=== PATIENT | female | born 2000 | race Caucasian/White ===

== ENCOUNTER 2022-04-25 13:25 | Emergency (ER) | payer OTHER, SELFPAY ==
--- OUTSIDE RECORDS SUMMARY | 2022-04-25 13:33 | XMS REPORT | Continuity of Care Document ---
:2000 Author Organization [facility] t Address [address] [place] [address] Care Team Providers Name Role Phone Pcp, Patient Does Not Have A Primary Care Physician [phone] PARVEZ MILLER Attending Clinician Unavailable JAYMIE GUARDADO Attending Clinician Unavailable De Rocha MD Attending Clinician DE ROCHA Attending Clinician Unavailable Doctor Unassigned, [place] Attending Clinician Unavailable Jaymie Guardado PA-C Attending Clinician RASHEL Attending Clinician Unavailable Kervin Robles Attending Clinician [phone] Nurse, [facility] Attending Clinician Unavailable Renay Martínez MD Attending Clinician Nickolas Nichols MD Attending Clinician Ultrasound, [facility] Attending Clinician Unavailable Carrie Cordoba MD Attending Clinician Marv Wyatt MD Attending Clinician [phone] MARV WYATT Attending Clinician Unavailable ESPERANZA SALMON Attending Clinician Unavailable Shima HAIRSTON, Iris Frias Attending Clinician Esperanza Salmon MD Attending Clinician Magdalene De Dios RN Attending Clinician Unavailable , [facility] Lab Attending Clinician Unavailable HARSHAD PATTERSON Attending Clinician Unavailable TYRA PRESTON Attending Clinician Unavailable DE ROCHA Admitting Clinician Unavailable PARVEZ MILLER Admitting Clinician Unavailable FABIOLA_R Admitting Clinician Unavailable De Rocha MD Admitting Clinician ESPERANZA SALMON Admitting Clinician Unavailable Esperanza Salmon MD Admitting Clinician Payers Payer Name Policy Type Policy Number Effective Date Expiration Date Josh zamorano [facility] [id number] 2021 00:00:00 [facility] [id number] 2017 CHOICE 00:00:00 [facility] [id number] Problems Condition Condition Condition Status Onset Resolution Last Treating Co mments Source Name Details Category Date Date Treatment Clinician Date History of History of Disease Active 2020-07 U nivers anxiety anxiety 1-16 ity of 00:00: [place] [address] Medical Branch History of History of Disease Active 2020-07 U nivers depression depression 1-16 it y of 00:00: [address] Hx of Hx of Disease Active 2020-07 Univers bipolar bipolar -16 ity of disorder disorder 00:00: [address] OAB OAB Disease Active 2020-07 Univers (overactiv (overactiv 1-16 it y of e bladder[place] e [place] [facility] Congenital Congenital Disease Active Overview : Univers breast breast 2-05 Formattin ity of deformity deformity 00:00: [place] of this [place] 00 note Medical might be Branch different from the original. Added automatic ally from request for surgery [id number] Obesity Obesity Disease Active Univers (BMI (BMI 3-11 ity of 30-39.9) 30-39.9) 00:00: [address] Allergies, Adverse Reactions, Alerts Allergy Allergy Status Severity Reaction(s) Onset Inactive Treating Comm ents Source Name Type Date Date Clinician NO KNOWN Drug Active Univers ALLERGIE Class ity of S [facility] Social History Social Habit Start Date Stop Date Quantity Comments Source Exposure to 2022-03-28 2022-04-07 Not sure [facility] SARS-CoV-2 00:00:00 12:56:00 [facility] (event) Branch Alcohol intake 2022-04-07 2022-04-07 Current University 00:00:00 00:00:00 non-drinker of [facility] alcohol (finding) [place] Tobacco use and 2022-02-10 2022-02-10 Smokeless tobacco Un iversity of exposure 00:00:00 00:00:00 non-user [facility] Sex Assigned At [birth year] Universit y of 00:00:00 00:00:00 [facility] Smoking Status Start Date Stop Date Source Never smoked tobacco [facility] Medications Ordered Filled Start Stop Current Ordering Indication Dosage Frequency Signature Comments Components Source Medication Medication Date Date Medication? Clinician (SIG) Name Name OXCARBAZEPI 2021-07 Yes Take by Uni vers NE ORAL 0-03 mouth. ity of 13:28: [address] OXCARBAZEPI 2021-07 Yes Take by Uni vers NE ORAL 0-03 mouth. ity of 13:28: [address] etonogestre 2021- No [id number] 68mg Univers L 02-19 ity of (NEXPLANON) 17:15: 16:05 [place] implant 68 00 :00 Medical [facility] etonogestre 2021- No [id number] 68mg 68 mg, Univers L 02-19 Subdermal, ity of (NEXPLANON) 17:15: 16:05 ONCE NOW, [place] implant 68 00 :00 1 dose, On Med ical mg Wed Branch 02/19/22 at 1215, Routine
Use approved by: [employer] hydrOXYzine Yes TAKE 1 Univ ers 25 mg 8-02 CAPSULE BY ity of capsule 00:00: MOUTH AT [place] [address] BEDTIME Medical NEEDED Branch hydrOXYzine Yes TAKE 1 Univ ers 25 mg 8-02 CAPSULE BY ity of capsule 00:00: MOUTH AT [place] [address] BEDTIME Medical NEEDED Branch hydrOXYzine Yes TAKE 1 Univ ers 25 mg 8-02 CAPSULE BY ity of capsule 00:00: MOUTH AT [place] [address] BEDTIME Medical NEEDED Branch hydrOXYzine Yes TAKE 1 Univ ers 25 mg 8-02 CAPSULE BY ity of capsule 00:00: MOUTH AT [place] [address] BEDTIME Medical NEEDED Branch docusate Yes [id number] 200mg Take 2 Un jacek 100 mg 6-29 capsules ity of capsule 00:00: by mouth [place] 00 once daily Medical as needed Branch for Constipati on. ibuprofen Yes [id number] 600mg Take 1 U nivers 600 mg 6-29 tablet by ity of tablet 00:00: mouth [place] 00 every 6 Medical (six) Branch hours as needed (Pain). Take with food or milk. docusate Yes [id number] 200mg Take 2 Un jacek 100 mg 6-29 capsules ity of capsule 00:00: by mouth [place] 00 once daily Medical as needed Branch for Constipati on. ibuprofen Yes [id number] 600mg Take 1 U nivers 600 mg 6-29 tablet by ity of tablet 00:00: mouth [place] 00 every 6 Medical (six) Branch hours as needed (Pain). Take with food or milk. docusate 2021- No [id number] 200mg Take 2 U nivers 100 mg 6-29 10-03 capsules ity of capsule 00:00: 00:00 by mouth [place] 00 :00 once daily Medical as needed Branch for Constipati on. ibuprofen 2021- No [id number] 600mg Take 1 Univers 600 mg 6-29 10-03 tablet by ity of tablet 00:00: 00:00 mouth [place] 00 :00 every 6 Medical (six) Branch hours as needed (Pain). Take with food or milk. docusate 2021- No [id number] 200mg Take 2 U nivers 100 mg 6-29 10-03 capsules ity of capsule 00:00: 00:00 by mouth [place] 00 :00 once daily Medical as needed Branch for Constipati on. ibuprofen 2021- No [id number] 600mg Take 1 Univers 600 mg 6-29 10-03 tablet by ity of tablet 00:00: 00:00 mouth [place] 00 :00 every 6 Medical (six) Branch hours as needed (Pain). Take with food or milk. PNV 2020-07 Yes [id number] Take 1 Univer s 102-iron-fo 1-16 TAB-CAP/M2 it y of late-dha 00:00: by mouth [place] (VITAFOL FE 00 daily. Medica l PLUS) 90 mg Branch iron- 1 mg-200 mg Cap PNV 2020-07 Yes [id number] Take 1 Univer s 102-iron-fo 1-16 TAB-CAP/M2 it y of late-dha 00:00: by mouth [place] (VITAFOL FE 00 daily. Medica l PLUS) 90 mg Branch iron- 1 mg-200 mg Cap PNV 2020-07- No [id number] Take 1 Unive rs 102-iron-fo 16 10- TAB-CAP/M2 i ty of late-dha 00:00: 00:00 [place] (VITAFOL FE 00 :00 daily. Medica l PLUS) 90 mg Branch iron- 1 mg-200 mg Cap PNV 2020-07- No [id number] Take 1 Unive rs 102-iron-fo 07-21 TAB-CAP/M2 i ty of late-dha 00:00: 00:[place] (VITAFOL FE 00 :00 daily. Medica l PLUS) 90 mg Branch iron- 1 mg-200 mg Cap Immunizations Ordered Filled Immunization Date Status Comments [facility] e Immunization Name Name TD 2021-10-28 Completed University of 00:00:00 [facility] TDAP 2021-10-28 Completed University of 00:00:00 [facility] TDAP 2021-10-28 Completed University of 00:00:00 [facility] TDAP 2021-10-28 Completed University of 00:00:00 [facility] SARS-COV-2 COVID-19 2021-08-07 Completed Unive rsity of UNSPECIFIED VACCINE 00:00:00 [facility] SARS-COV-2 COVID-19 2021-08-07 Completed Unive rsity of UNSPECIFIED VACCINE 00:00:00 [facility] SARS-COV-2 COVID-19 2021-08-07 Completed Unive rsity of UNSPECIFIED VACCINE 00:00:00 [facility] SARS-COV-2 COVID-19 2021-08-07 Completed Unive rsity of UNSPECIFIED VACCINE 00:00:00 [facility] Influenza Virus 2021-05-12 Completed Universit y of Vaccine 00:00:00 [facility] Influenza Virus 2021-05-12 Completed Universit y of Vaccine 00:00:00 [facility] Influenza Virus 2021-05-12 Completed Universit y of Vaccine 00:00:00 [facility] Influenza Virus 2021-05-12 Completed Universit y of Vaccine 00:00:00 [facility] SARS-COV-2 COVID-19 2020-12-18 Completed Unive rsity of MODERNA VACCINE 00:00:00 [place] Med ical Branch SARS-COV-2 COVID-19 2020-12-18 Completed Unive rsity of MODERNA 12+ YRS 00:00:00 [place] Med ical VACCINE Branch SARS-COV-2 COVID-19 2020-12-18 Completed Unive rsity of MODERNA 12+ YRS 00:00:00 [place] Med ical VACCINE Branch SARS-COV-2 COVID-19 2020-12-18 Completed Unive rsity of MODERNA 12+ YRS 00:00:00 [place] Med ical VACCINE Branch SARS-COV-2 COVID-19 2020-11-17 Completed Unive rsity of MODERNA VACCINE 00:00:00 [place] [facility] ical Branch SARS-COV-2 COVID-19 2020-11-17 Completed Unive rsity of MODERNA 12+ YRS 00:00:00 [place] Med ical VACCINE Branch SARS-COV-2 COVID-19 2020-11-17 Completed Unive rsity of MODERNA 12+ YRS 00:00:00 [place] [facility] ical VACCINE Branch SARS-COV-2 COVID-19 2020-11-17 Completed Unive rsity of MODERNA 12+ YRS 00:00:00 [facility] ical VACCINE Branch SARS-COV-2 COVID-19 2020-08-18 Completed Unive rsity of UNSPECIFIED VACCINE 00:00:00 [facility] SARS-COV-2 COVID-19 2020-08-18 Completed Unive rsity of UNSPECIFIED VACCINE 00:00:00 [facility] SARS-COV-2 COVID-19 2020-08-18 Completed Unive rsity of UNSPECIFIED VACCINE 00:00:00 [facility] SARS-COV-2 COVID-19 2020-08-18 Completed Unive rsity of UNSPECIFIED VACCINE 00:00:00 [facility] Vital Signs Vital Name Observation Time Observation Value Comments Source Systolic blood 2022-04-07 18:22:00 109 mm[Hg] Univer sity of pressure [facility] Diastolic blood 2022-04-07 18:22:00 75 mm[Hg] Unive rsity of pressure [facility] Heart rate 2022-04-07 18:22:00 81 /min Universi ty of [facility] Body temperature 2022-04-07 18:22:00 36.72 [facility] Res[facility] rate 2022-04-07 18:22:00 18 /min [facility] Body height 2022-04-07 18:22:00 160 cm Universi ty [facility] [place] [facility] Body weight 2022-04-07 18:22:00 90.719 kg Universi ty [facility] [place] [facility] BMI 2022-04-07 18:22:00 35.43 kg/m2 Universi ty [facility] [place] [facility] Systolic blood 2022-02-19 15:05:00 113 mm[Hg] Univer sity of pressure [facility] Diastolic blood 2022-02-19 15:05:00 78 mm[facility]Hg] [facility] Heart rate 2022-02-19 15:05:00 76 /min Universi ty [facility] [place] [facility] Body temperature 2022-02-19 15:05:00 36.72 Eun [facility] Body height 2022-02-19 15:05:00 160 cm Universi ty [facility] [place] [facility] Body weight 2022-02-19 15:05:00 90.81 kg Universi ty [facility] [place] [facility] BMI 2022-02-19 15:05:00 35.46 kg/m2 [facility] Procedures Procedure Date / Time Performing Clinician Source Performed CONSENT FOR 2022-02-19 05:01:00 Doctor Unassigned, No [facility] CONTRACEPTION [facility] POCT TEST 2022-02-19 00:00:00 De Rocha [facility] Encounters Start End Encounter Admission Attending Care Care Encounter Source Date/Time Date/Time Type Type Clinicians Facility Department ID 2021-11-08 Outpatient X [facility] FAM [id number] Univers [facility]:13:[facility] 2021-05-05 Outpatient PARVEZ HENDRIX [facility] SPL [id number] Univers 08:42:26 [facility] 2021-05-05 Outpatient PARVEZ HENDRIX [facility] VLS [id number] Univers 06:21:21 [facility] 2022-08-13 2022-08-13 Outpatient Tiago GUARDADO [place] [id number] Univers 10:45:00 10:45:00 JAYMIE itelena [facility] [place] [facility] 2022-04-07 2022-04-07 Office [facility] [id number] Univers 13:30:00 13:40:57 Visit Jayden FORTUNEEUNICE [id number] i ty of [facility] [id number] [id number] [address] 2022-04-07 2022-04-07 Outpatient [facility] [id number] Univers 13:30:00 13:40:57 ity of [facility] 2022-02-19 2022-02-19 Outpatient R [facility] [id number] Univers 10:00:00 10:25:56 ity of [facility] 2022-02-19 2022-02-19 Office [facility] [id number] Univers 10:00:00 10:25:56 Visit Jayden DANG [id number] i ty of [place] [id number] [id number] [address] 2022-02-19 2022-02-19 Orders Doctor RENAY 1.2.840.114 [id number] Univers 00:00:00 00:00:00 Only Unassigned, LISA [id number] ity of [place] [facility] [id number] Alexis as [id number] [address] 2022-02-10 2022-02-10 Outpatient R GEO [place] [id number] Univers 09:45:00 10:47:25 JAYMIE orellana [facility] [place] [facility] 2022-02-10 2022-02-10 [facility] [id number] Univers 09:45:00 10:00:00 Jaymie FORTUNEEUNICE [id number] ity of [place] 4.2.7.2.[place] [id number] [address] 2022-02-05 2022-02-05 Telephone De Rocha [facility] ..840.114 [id number] Univers 00:00:00 00:00:00 Jayden DANG [id number] i ty of [place] 4.2.7.2.[place] [id number] Pr dical [address] 2022-01-29 2022-01-29 Outpatient R GEO [place] [id number] Univers 09:30:00 09:30:00 JAYMIE orellana [facility] 2022-01-21 2022-01-21 Outpatient ERENRIKE_R [facility] [id number] [place] 12:09:00 12:09:00 719 [facility] 2022-01-21 2022-01-21 Outpatient Fabiola [facility] [id number] aimee-0 00:00:00 00:00:00 Kervin [id number] Siddhartha [id number] 2022-01-08 2022-01-08 Nurse Nurse, [facility] Women[facility] [id number] Univers 10:30:00 10:30:00 Visit Jaymie [id number] [facility] [place] [id number] [address] 2022-01-08 2022-01-08 Outpatient Tiago GUARDADO [place] [id number] Univers 10:30:00 09:29:57 JAYMIE orellana [facility] 2021-12-30 2022-01-01 Inpatient P JOSEFINA DE [facility] FAM [id number] Univers 14:14:00 13:45:00 ity [facility] 2021-12-30 2022-01-01 [facility] De Rocha [facility] 1.2.840.114 [id number] Univers 14:14:00 13:45:00 Encounter Jayden DANG [id number] ity [facility] [id number] [id number] [address] 2021-12-30 2021-12-31 Anesthesia Renay Martínez [facility] 1.2.840. 114 [id number] Univers 20:30:00 08:49:00 Event Nickolas Nichols [place] 350.1.13. 10 ity of [place] 4.2.7.2.[place] [id number] [address] 2021-12-30 2021-12-30 Outpatient R [facility] [id number] Univers 13:00:00 13:59:46 ity of [facility] 2021-12-30 2021-12-30 Routine [facility] [id number] Univers 13:00:00 13:59:46 Cam [place] 350.1.13.10 ity of Visit [place] 4.2.7.2.[place] [facility] [id number] Pr dical [address] 2021-12-30 2021-12-30 Orders Doctor RENAY 1.2.840.114 [id number] Univers 00:00:00 00:00:00 Only Unassigned, LISA 350.1.13.10 ity of [place] [facility] 4.2.7.2.686 Alexis as [id number] [address] 2021-12-27 2021-12-27 Outpatient P JOSEFINA [facility] OBS [id number] Univers 15:06:00 16:15:00 ity of [facility] 2021-12-27 2021-12-27 Hospital [facility] 1.2.840.114 [id number] Univers 15:06:00 16:15:00 Encounter Cam [place] [id number] ity of [place] 4.2.7.2.[place] [id number] [address] 2021-12-25 2021-12-26 Outpatient X JOSEFINA [facility] FAM [id number] Univers 21:26:00 02:15:00 ity of [facility] 2021-12-25 2021-12-26 Emergency [facility] 1.2.840.114 [id number] Univers 21:26:00 02:15:00 Cam [place] [id number] i ty of [facility] 4.2.7.2.[place] [id number] [place] [address] [place] 2021-12-26 2021-12-26 Telephone De Rocha [facility] 1.2.840.114 [id number] Univers 00:00:00 00:00:00 Cam [place] 350.1.13.10 i ty of [facility] 4.2.7.2.[place] [id number] Pr dical [address] 2021-12-25 2021-12-25 Telephone De Rocha [facility] 1.2.840.114 [id number] Univers 00:00:00 00:00:00 Cam [place] 350.1.13.10 i ty of [facility] 4.2.7.2.[place] [id number] Pr dic[address] 2021-12-24 2021-12-24 Churn Operator Ultrasound, [facility] 1.2 .840.114 [id number] Univers 10:30:00 11:00:00 Visit Carrie Cordoba 350.1.13.10 ity of [place] [facility] 4.2.7.2. 686 [place] PROFESSIO [id number] [address] 2021-12-24 2021-12-24 Outpatient P LISETH [place] [id number] Univers 10:30:00 10:30:00 BART it y of MARV Moreno [facility] 2021-12-23 2021-12-23 Outpatient R GEO [place] [id number] Univers 10:15:00 11:37:09 JAYMIE orellana of [facility] 2021-12-23 2021-12-23 Routine Geo [facility] [id number] Univers 10:15:00 11:37:09 Jaymie DANG 350.1.13.10 ity of [facility] 4.2.[place].2.[place] [id number] Pr dical NAL [address] [place] [address] 2021-12-23 2021-12-23 Orders Doctor RENAY 1.2.840.114 [id number] Univers 00:00:00 00:00:00 Only Unassigned, LISA 350.1.13.10 ity of [place] [facility] 4.2.7.2.686 Alexis as [id number] [address] 2021-12-19 2021-12-19 Outpatient X ADUM, [facility] FAM [id number] Univers 18:53:00 20:50:00 ESPERANZA orellana of [facility] 2021-12-19 2021-12-19 Emergency DreIris pérez [facility] 1.2.840 .114 [id number] Univers 18:53:00 20:50:00 AdEsperanza nielsen 350.1.13.10 ity of [place] 4.2.7.2.[place] [id number] [facility] 083 [place] 2021-12-19 2021-12-19 Orders Doctor RENAY 1.2.840.114 [id number] Univers 00:00:00 00:00:00 Only Unassigned, LISA 350.1.13.10 ity of [place] [facility] 4.2.7.2.686 Alexis as [id number] [address] 2021-12-17 2021-12-17 Patient Va [facility] 1.2.840.114 [id number] Univers 00:00:00 00:00:00 Secure Msg Magdalene DANG 350.1.13.10 ity of [place] 4.2.7.2.[place] [id number] [address] 2021-12-17 2021-12-17 Telephone De Rocha [facility] 1.2.840.114 [id number] Univers 00:00:00 00:00:00 Jayden DANG 350.1.13.10 i ty of [place] 4.2.7.2.[place] [id number] Pr dic[address] 2021-12-13 2021-12-14 Outpatient P DE ROCHA [facility] FAM [id number] Univers 21:55:00 21:09:00 ity of [facility] 2021-12-13 2021-12-14 Hospital De Rocha [facility] 1.2.840.114 [id number] Univers 21:55:00 21:09:00 Encounter Cam [place] 350.1.13.10 ity of [place] 4.2.7.2.[place] [id number] [facility] 083 [place] 2021-12-13 2021-12-13 Telephone De Rocha [facility] 1.2.840.114 [id number] Univers 00:00:00 00:00:00 Cam [place] 350.1.13.10 i ty of [place] 4.2.7.2.[place] [id number] [facility] 134 [facility] 2021-12-13 2021-12-13 Orders Doctor RENAY 1.2.840.114 [id number] Univers 00:00:00 00:00:00 Only Unassigned, LISA 350.1.13.10 ity of [place] [facility] 4.2.7.2.686 Alexis as [id number] [facility] 009 [place] 2021-12-12 2021-12-12 Telephone [facility] 1.2.840.114 [id number] Univers 00:00:00 00:00:00 Cam [place] 350.1.13.10 i ty of [place] 4.2.7.2.[place] [id number] Pr dical NAL [address] [place] [address] 2021-12-09 2021-12-09 Outpatient R DE ROCHA [place] [id number] Univers 09:45:00 09:46:00 ity of [facility] 2021-12-09 2021-12-09 Routine [facility] [id number] Univers 09:45:00 09:46:00 Jayden DANG 350.1.13.10 ity of Visit [place] 4.[place].2.[place] [id number] Pr dictn NAL [address] [place] [address] 2021-11-26 2021-11-26 Outpatient R GEO [place] [id number] Univers 11:30:00 11:36:27 JAYMIE ity [facility] [place] [facility] 2021-11-26 2021-11-26 Routine Geo [facility] [id number] Univers 11:30:00 11:36:27 Jaymie DANG 350.1.13.10 ity of [place] 4.[place].2.[place] [id number] [address] 2021-11-19 2021-11-19 Churn Operator Ultrasound, Adc [facility] 1.2 .840.114 [id number] Univers 11:15:00 11:45:00 Visit Liseth SortoamenaMarv escamillaEUNICE 350.1 .13.10 ity of [place] 4.2.7.2.[place] [id number] [address] 2021-11-19 2021-11-19 Outpatient P LISETH [place] [id number] Univers 11:15:00 11:15:00 BART it y of MARV Moreno [facility] 2021-11-12 2021-11-12 Outpatient R DE ROCHA [place] [id number] Univers 15:30:00 15:46:56 ity [facility] 2021-11-12 2021-11-12 Routine [facility] [id number] Univers 15:30:00 15:46:56 Jayden DEVIKAEUNICE 350.1.13.10 ity of Visit [place] 4.2.7.2.[place] [id number] [address] 2021-11-08 2021-11-08 Outpatient X JOSEFINA DE [facility] FAM [id number] Univers 17:06:00 18:55:00 ity [facility] 2021-11-08 2021-11-08 Emergency Josefina De [facility] 1.2.840.114 [id number] Univers 17:06:00 18:55:00 Cam [place] 350.1.13.10 i ty of [place] 4.2.7.2.[place] [id number] [facility] 083 [place] 2021-11-08 2021-11-08 Orders Doctor RENAY 1.2.840.114 [id number] Univers 00:00:00 00:00:00 Only Unassigned, LISA 350.1.13.10 ity of [place] [facility] 4.2.7.2.686 Alexis as [id number] [facility] 009 [place] 2021-10-28 2021-10-28 Outpatient R GEO [place] [id number] Univers 11:00:00 12:03:00 JAYMIE itelena [facility] 2021-10-28 2021-10-28 Routine Geo [facility] [id number] Univers 11:00:00 12:03:00 Jaymie DANG 350.1.13.10 ity of [place] [id number] Pr dical NAL 134 [facility] 2021-10-18 2021-10-18 Telephone De Rocha COOCHOA 1.2.840.114 [id number] Univers 00:00:00 00:00:00 Jayden DANG 350.1.13.10 i ty of [place] 4[place]2.[place] [id number] Pr dical NAL [address] [facility] 2021-10-11 2021-10-11 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, Adc Lab [facility] 1.2.840.114 [id number] Univers 11:00:00 11:15:00 Visit De Rocha 350.1.13.10 ity of [facility] 4.[place].2.[place] [id number] Pr balwinder ADAN [address] [facility] 2021-10-11 2021-10-11 Outpatient R DE ROCHA [place] [id number] Univers 11:00:00 11:00:00 itelena [facility] 2021-10-04 2021-10-04 Telephone De Rocha COOCHOA 1.2.840.114 [id number] Univers 00:00:00 00:00:00 Jayden DANG 350.1.13.10 i ty of [place] [phone] Pr dical [address] 2021-09-30 2021-09-30 Outpatient R DE ROCHA [place] [id number] Univers 11:15:00 11:43:40 ity of [facility] 2021-09-30 2021-09-30 Routine De Rocha [facility] 1.2.535.003 [id number] Univers 11:15:00 11:43:40 Jayden DANG 350.1.13.10 ity of [place] [phone] Pr dic[address] 2021-09-30 2021-09-30 Orders Doctor RENAY 1.2.840.114 [id number] Univers 00:00:00 00:00:00 Only Unassigned, LISA 350.1.13.10 ity of [place] [facility] 4.2.7.2.686 Alexis as [phone] [address] 2021-09-10 2021-09-10 Churn Operator Ultrasound, Adc [facility] 1.2 .840.114 [id number] Univers 08:30:00 09:30:00 Visit Marv Wyatt 350.1 .13.10 ity of [place] [id number] [address] 2021-09-10 2021-09-10 Outpatient P LISETH [place] [id number] Univers 08:30:00 08:30:00 BART it y of S [facility] 2021-09-02 2021-09-02 Routine Geo [facility] 1.2.528.901 [id number] Univers 11:00:00 11:15:00 Jaymie DANG 350.1.13.10 ity of [place] [id number] [address] 2021-09-02 2021-09-02 Outpatient R GEO [place] [id number] Univers 11:00:00 11:00:00 JAYMIE itelena [facility] 2021-09-02 2021-09-02 Telephone De Rocha [facility] 1.2.840.114 [id number] Univers 00:00:00 00:00:00 Jayden DANG 350.1.13.10 i ty [place] [phone] Pr dical NAL 134 [facility] 2021-08-27 2021-08-27 Telephone De Rocha [facility] 1.2.840.114 [id number] Univers 00:00:00 00:00:00 Jayden DANG 350.1.13.10 i ty [facility] [place] [phone] Pr dical NAL 134 [facility] 2021-08-22 2021-08-22 Outpatient ERICKSON_R [facility] [id number] [place] 12:28:00 12:28:00 [facility] 2021-08-22 2021-08-22 Outpatient Robles, [facility] [id number] [id number] 00:00:00 00:00:00 Kervin [id number] Siddhartha [id number] 2021-08-08 2021-08-08 Telephone De Rocha [facility] 1.2.840.114 [id number] Univers 00:00:00 00:00:00 Jayden DANG 350.1.13.10 i ty of [facility] [place] [id number] Pr dical NAL 134 [facility] 2021-08-05 2021-08-05 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, Adc Lab [facility] 1.2.840.114 [id number] Univers 09:15:00 09:30:00 Visit De Rocha Jayden DANG 350.1.13.10 [place] [id number] Pr dical NAL 353 [facility] 2021-08-05 2021-08-05 Outpatient R JOSEFINA DE [place] [id number] Univers 08:45:00 09:07:02 ity of [facility] 2021-08-05 2021-08-05 Routine De Rocha [facility] [id number] Univers 08:45:00 09:07:02 Cam [place] 350.1.13.10 ity of [place] [phone] Pr dical NAL 134 [facility] 2021-07-08 2021-07-08 Outpatient R GEO [place] [id number] Univers 11:00:00 11:46:03 JAYMIE ity [facility] 2021-07-08 2021-07-08 [facility] 1.2.222.525 [id number] Univers 11:00:00 11:46:03 Jaymie ALTON 350.1.13.10 ity of [place] [phone] Pr dical NAL [address] [place] [address] 2021-06-17 2021-06-17 Outpatient R ROCHA DE [place] [id number] Univers 10:30:00 10:30:00 ity of [facility] 2021-06-17 2021-06-17 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, [facility] Lab [facility] 1.2.840.114 [id number] Univers 09:16:49 09:31:49 Visit De RochaEUNICE 350.1.13.10 ity of [place] [id number] Pr dical NAL 353 [facility] 2021-06-10 2021-06-10 Outpatient R ROCHA DE [place] [id number] Univers 11:00:00 11:52:38 ity of [facility] 2021-06-10 2021-06-10 Routine [facility] 1.2.878.031 [id number] Univers 10:51:16 11:52:38 Cam [place] 350.1.13.10 ity of [place] [id number] Pr dical NAL 134 [facility] 2021-06-10 2021-06-10 Outpatient R DE ROCHA [place] [id number] Univers 11:00:00 11:00:00 ity of [facility] 2021-06-10 2021-06-10 Orders Doctor RENAY 1.2.840.114 [id number] Univers 00:00:00 00:00:00 Only Unassigned, LISA 350.1.13.10 ity of [place] [facility] 4.2.7.2.686 Alexis as [phone] [address] 2021-05-27 2021-05-27 Outpatient R DE ROCHA [place] [id number] Univers 13:30:00 13:30:00 ity [facility] 2021-05-27 2021-05-27 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, [facility] Lab [facility] 1.2.840.114 [id number] Univers 11:02:35 11:17:35 Visit De Rocha ALTON 350.1.13.10 ity of [place] [id number] Pr dical [address] 2021-05-24 2021-05-24 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, Adc Lab [facility] 1.2.840.114 [id number] Univers 10:22:08 11:15:46 Visit De Rocha ALTON 350.1.13.10 ity of [place] [phone] Pr dical [address] 2021-05-24 2021-05-24 Outpatient R [place] [id number] Univers 11:00:00 11:00:00 ity of [facility] 2021-05-24 2021-05-24 Outpatient R DE ROCHA [place] [id number] Univers 11:00:00 11:00:00 ity [facility] 2021-05-22 2021-05-22 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, [facility] Lab [facility] 1.2.840.114 [id number] Univers 10:40:30 11:09:32 Visit De RochaEUNICE 350.1.13.10 ity of [place] [phone] Pr dical NAL [address] [place] [address] 2021-05-22 2021-05-22 Outpatient R [place] [id number] Univers 11:00:00 11:00:00 ity of [facility] 2021-05-22 2021-05-22 Outpatient R DE ROCHA [place] [id number] Univers 11:00:00 11:00:00 ity of [facility] 2021-05-21 2021-05-21 Case Geo [facility] 1.2.840.114 [id number] Univers 00:00:00 00:00:00 Management Jaymie ESTEBAN 350.1.13.10 [place] [id number] [address] 2021-05-21 2021-05-21 Case Geo [facility] 1.2.840.114 [id number] Univers 00:00:00 00:00:00 Management Jaymie ORELLANA 350.1.13.10 [place] [phone] [address] 2021-05-20 2021-05-20 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, Adc Lab [facility] 1.2.840.114 [id number] Univers 15:44:48 15:59:48 Visit De Rocha 350.1.13.10 ity of [facility] [place] [phone] Pr dical NAL [address] [place] [address] 2021-05-20 2021-05-20 Outpatient R RAH ROCHAEN [place] [id number] Univers 14:30:00 15:39:50 ity of [facility] 2021-05-20 2021-05-20 [facility] 1.2.786.970 [id number] Univers 13:49:55 15:39:50 Jayden DANG 350.1.13.10 ity of [facility] [place] [phone] Pr dical NAL 134 [facility] 2021-05-20 2021-05-20 Outpatient R DE ROCHA [place] [id number] Univers 15:30:00 15:30:00 ity [facility] 2021-05-20 2021-05-20 Telephone De Rocha [facility] 1.2.840.114 [id number] Univers 00:00:00 00:00:00 Cam ALTON 350.1.13.10 i ty of [place] [id number] Me dical NAL [address] [place] [address] 2021-05-15 2021-05-15 Orders Doctor RENAY 1.2.840.114 [id number] Univers 00:00:00 00:00:00 Only Unassigned, LISA 350.1.13.10 [facility] 4.2.7.2.686 Alexis as [phone] [address] 2020-10-05 2020-10-05 Outpatient PARVEZ HENDRIX [place] [id number] Univers 13:40:00 [facility]:40:[facility] 2020-09-12 Outpatient PARVEZ HENDRIX [place] [id number] Univers 10:00:00 10:00:00 [facility] 2020-08-10 2020-08-10 Outpatient PARVEZ HENDRIX [place] [id number] Univers 10:15:00 10:15:00 [facility] 2020-08-09 2020-08-09 Outpatient Tiago PATTERSON [place] [id number] Univers 11:45:00 11:45:00 HARSHAD [facility] 2020-07-17 2020-07-17 Outpatient Tiago GUARDADO [place] [id number] Univers 14:30:00 14:30:00 [facility]07-05 2020-07-05 Outpatient Tiago GUARDADO [place] [id number] Univers 15:00:00 15:00:00 JAYMIE [facility] 2020 2020 Outpatient Tiago GUARDADO [place] [id number] Univers 09:30:00 09:30:00 [facility] 2020-05-23 2020-05-23 Outpatient PARVEZ HENDRIX [place] [id number] Univers 11:00:00 11:00:00 [facility] 2020-04-30 2020-04-30 [facility] [id number] Univers 13:15:00 13:15:00 [facility] 2020-03-19 2020-03-19 Outpatient [facility] [id number] Univers 13:00:00 13:00:00 [facility] 2020-03-05 2020-03-05 Outpatient [facility] [id number] Univers 13:15:00 13:15:00 [facility] 2020-02-14 2020-02-14 [facility] [id number] Univers 15:15:00 15:15:00 TYRA [facility] 2020-02-03 2020-02-03 Outpatient Tiago GUARDADO [place] [id number] Univers 15:00:00 15:00:00 [facility] 2019-09-14 2019-09-14 [facility] [id number] Univers 08:30:00 08:30:00 [facility] Results Test Description Test Time Test Comments Results Result Comments Source POCT TEST 2022-02-19 15:25:00 Test Item Value Reference Range Interpretation Comme nts POCT PREG (test code = 1605) Negative On board controls acceptable with C Line (test code = 3574) Yes POCT PREG LOT # (test code = 3575) POCT PREG TEST DATE (test code = 3576) [facility]
--- NOTE | 2022-04-25 14:03 | ER ---
Nurse's Notes [facility] Julieta Name: Donita Oreilly Age: 21 yrs Sex: Female : 2000 Arrival Date: 04/25/2022 Time: 13:26 Bed 12 Private MD: Diagnosis: Epistaxis Presentation: 04/25 13:38 Chief complaint: Patient states: Pt reports spontaneous nosebleed x15 minutes. Denies kb3 trauma. Coronavirus screen: Vaccine status: Patient reports receiving the 2nd dose of the covid vaccine. Client denies travel out of the [place] in the last 14 days. Ebola Screen: Patient negative for fever greater than or equal to 101.5 degrees Fahrenheit, and additional compatible Ebola Virus Disease symptoms Patient denies exposure to infectious person. Patient denies travel to an Ebola-affected area in the 21 days before illness onset. No symptoms or risks identified at this time. Initial Sepsis Screen: Does the patient meet any 2 criteria? No. Patient's initial sepsis screen is negative. Does the patient have a suspected source of infection? No. Patient's initial sepsis screen is negative. Risk Assessment: Do you want to hurt yourself or someone else? Patient reports no desire to harm self or others. Onset of symptoms was April 25, 2022 at 13:10. 13:38 Method Of Arrival: Ambulatory 3 13:38 Acuity: JERMAINE 4 kb3 Triage Assessment: 13:39 General: Appears in no apparent distress. Behavior is calm, cooperative. Pain: Denies kb3 pain. Historical: - Allergies: 13:39 No Known Allergies; kb3 - Home Meds: 13:39 None [Active]; kb3 - PMHx: 13:39 None; kb3 - PSHx: 13:39 None; kb3 - Immunization history:: Adult Immunizations up to date, Client reports receiving the 2nd dose of the Covid vaccine, Last tetanus immunization: up to date. - Social history:: Smoking status: Patient denies any tobacco usage or history of. Screenin:22 Abuse screen: Denies threats or abuse. Denies injuries from another. Nutritional hb screening: No deficits noted. Tuberculosis screening: No symptoms or risk factors identified. Fall Risk None identified. Assessment: 14:22 General: Appears in no apparent distress. Behavior is calm, cooperative. Pain: Denies hb pain. Neuro: Level of Consciousness is awake, alert, obeys commands, Oriented to person, place, time, situation. Vital Signs: 13:38 BP 119 / 64; Pulse 75; Resp 20; Temp 98; Pulse Ox 100% ; Weight 88.45 kg; Height 5 ft. kb3 3 in. (160.02 cm); Pain 0/10; 13:38 Body Mass Index 34.54 (88.45 kg, 160.02 cm) kb3 ED Course: 13:26 Patient arrived in ED. am2 13:31 Desiree Cole FNP-C is [facility]. kb 13:31 Christopher Birmingham MD is Attending Physician. kb 13:39 Triage completed. kb3 13:39 Arm band placed on right wrist. Patient placed in an exam room. kb3 14:22 Allegra Salazar, RN is Primary Nurse. hb 14:22 Patient has correct armband on for positive identification. hb 14:22 No provider procedures requiring assistance completed. Patient did not have IV access hb during this emergency room visit. Administered Medications: No medications were administered Medication: 14:22 VIS not applicable for this client. hb Outcome: 14:03 Discharge ordered by MD. kb 14:22 Discharged to home ambulatory. hb 14:22 Condition: stable 14:22 Discharge instructions given to patient, Instructed on discharge instructions, follow up and referral plans. medication usage, Demonstrated understanding of instructions, follow-up care. 14:23 Patient left the ED. hb Signatures: Desiree Cole FNP-C SPECIAL EFFECTS ARTIST-Ckb Allegra Salazar, RN RN Hailey Logan am2 Vonnie De Leon RN RN kb3
--- NOTE | 2022-04-25 14:03 | EDPHYS ---
Physician Documentation [facility] Name: Donita Oreilly Age: 21 yrs Sex: Female : 2000 Arrival Date: 04/25/2022 Time: 13:26 Bed 12 Private MD: ED Physician Christopher Birmingham HPI: 04/25 14:07 This 21 yrs old Female presents to ER via Ambulatory with complaints of Nose Bleed. kb 14:07 The patient presents with a nose bleed, occurred from an unknown cause, that is kb continuous causative factors include: unknown, and the bleeding is not resolved and continues in ER. Onset: The symptoms/episode began/occurred 6 minute(s) ago. Modifying factors: The symptoms are alleviated by nothing. the symptoms are aggravated by nothing. Associated signs and symptoms: The patient has no apparent associated signs or symptoms, Loss of consciousness: the patient experienced no loss of consciousness. Severity of symptoms: At their worst the symptoms were mild in the emergency department the symptoms are unchanged. The patient has not experienced similar symptoms in the past. The patient has not recently seen a physician. Historical: - Allergies: 13:39 No Known Allergies; kb3 - Home Meds: 13:39 None [Active]; kb3 - PMHx: 13:39 None; kb3 - PSHx: 13:39 None; kb3 - Immunization history:: Adult Immunizations up to date, Client reports receiving the 2nd dose of the Covid vaccine, Last tetanus immunization: up to date. - Social history:: Smoking status: Patient denies any tobacco usage or history of. ROS: 14:07 Constitutional: Negative for fever, chills, and weight loss. kb 14:07 ENT: Positive for nose bleed. 14:07 All other systems are negative. Exam: 14:07 Constitutional: This is a well developed, well nourished patient who is awake, alert, kb and in no acute distress. Head/Face: Normocephalic, atraumatic. Cardiovascular: Regular rate and rhythm with a normal S1 and S2. No gallops, murmurs, or rubs. No pulse deficits. Respiratory: Respirations even and unlabored. No increased work of breathing. Talking in full sentences Skin: Warm, dry with normal turgor. Normal color. MS/ Extremity: Pulses equal, no cyanosis. Neurovascular intact. Full, normal range of motion. Neuro: Awake and alert, GCS 15, oriented to person, place, time, and situation. Moves all extremities. Normal gait. 14:07 ENT: Nose: clotted blood, in left nare. Vital Signs: 13:38 BP 119 / 64; Pulse 75; Resp 20; Temp 98; Pulse Ox 100% ; Weight 88.45 kg; Height 5 ft. kb3 3 in. (160.02 cm); Pain 0/10; 13:38 Body Mass Index 34.54 (88.45 kg, 160.02 cm) kb3 MDM: 13:31 Patient medically screened. kb 14:06 Data reviewed: vital signs, nurses notes. Data interpreted: Pulse oximetry: on room air kb is 100 %. Interpretation: normal. Counseling: I had a detailed discussion with the patient and/or guardian regarding: the historical points, exam findings, and any diagnostic results supporting the discharge/admit diagnosis, the need for outpatient follow up, an ENT specialist, to return to the emergency department if symptoms worsen or persist or if there are any questions or concerns that arise at home. 14:07 ED course: a large clot removed from left nare. Bleeding resolved . kb Administered Medications: No medications were administered Disposition Summary: 04/25/22 14:03 Discharge Ordered Location: Home kb Condition: Stable kb Diagnosis - Epistaxis kb Followup: kb - With: Emergency Department - When: As needed - Reason: Worsening of condition Followup: kb - With: Private Physician - When: 2 - 3 days - Reason: Recheck today's complaints, Continuance of care, Re-evaluation by your physician Discharge Instructions: - Discharge Summary Sheet kb - Nosebleed, Adult, [id number] kb Forms: - Medication Reconciliation Form kb - Thank You Letter kb - Antibiotic Education kb - Prescription Opioid Use kb Addendum: 04/29/2022 04:07 Co-signature as Attending Physician, Christopher Birmingham MD I agree with the assessment and c bowers plan of care. Signatures: Desiree Cole, WATER TAXI OPERATOR-C WATER TAXI OPERATOR-Christopher Duvall MD MD cha Bradberry, Kelly, RN RN kb3
[2022-04-25 14:28] VITALS: BP 119/64; TEMP 98; O2SAT 100
== END 2022-04-25 14:23 | disposition home or self-care (01) ==
LOC: ER 13:25
DX: R04.0 Epistaxis (principal)
CPT/HCPCS: 99281